=== PATIENT | female | born 1980 | race Caucasian/White ===

== ENCOUNTER 2018-04-25 16:48 | Emergency (ER) | payer MEDICAID ==
[~2018-04-25] VITALS: Ht 157.5 cm; Wt 83.0 kg
[2018-04-25] MEDS ORDERED: ASPI-1159 PO (17:29)
[2018-04-25] MEDS ORDERED: METO-385 PO (17:29)
[2018-04-25] MEDS ORDERED: ACETAMINOPHEN 500MG TABLET PO ONE (23:45)
[2018-04-26 00:47] LABS: CLARITY URINE TURBID (CLEAR); COLOR URINE DARK YELLOW (YELLOW); KETONES URINE 3+ (NEGATIVE); LEUKOCYTE ESTERASE URINE 2+ (NEGATIVE); NITRITE URINE NEGATIVE (NEGATIVE); OCCULT BLOOD URINE 1+ (NEGATIVE); PH URINE 5.5 (4.5-8.0); PROTEIN URINE 1+ (NEGATIVE); SPECIFIC GRAVITY URINE 1.027 (1.005-1.030)
[2018-04-26] MEDS ORDERED: CEPHALEXIN 250MG CAPSULE PO SCH (02:45)
[2018-04-26 03:36] VITALS: BP 118/68
== END 2018-04-26 03:36 | disposition home or self-care (01) ==
LOC: ER 16:48
DX: O23.42 Unspecified infection of urinary tract in pregnancy, second trimester (principal); O16.2 Unspecified maternal hypertension, second trimester; Z3A.15 15 weeks gestation of pregnancy
CPT/HCPCS: 81025; 87077; 87804; 99283

== ENCOUNTER 2018-08-23 19:25 | Observation (INO) | payer MEDICAID ==
[~2018-08-23] VITALS: Ht 154.9 cm; Wt 89.4 kg
[~2018-08-23 19:25] MED LIST: ASPI-1393 PO; METO-385 PO
[2018-08-23 20:20] LABS: CLARITY URINE CLOUDY (CLEAR); COLOR URINE YELLOW (YELLOW); KETONES URINE TRACE (NEGATIVE); LEUKOCYTE ESTERASE URINE 2+ (NEGATIVE); NITRITE URINE NEGATIVE (NEGATIVE); OCCULT BLOOD URINE NEGATIVE (NEGATIVE); PROTEIN URINE NEGATIVE (NEGATIVE); SPECIFIC GRAVITY URINE 1.027 (1.005-1.030)
[2018-08-23 20:22] LABS: BASOPHILS % 0.3 % (0.0-2.0); EOSINOPHILS % 0.8 % (0.0-5.0); HEMATOCRIT. 35.9 % (36.0-48.0); HEMOGLOBIN. 12.2 g/dL (12.0-16.0); LYMPHOCYTES % 19.6 % (20.0-50.0); MEAN CORPUSCULAR HEMOGLOBIN 31.3 pg (28.0-32.0); MEAN CORPUSCULAR VOLUME 92.2 fL (81.0-99.0); MEAN PLATELET VOLUME 9.5 fl (7.4-10.4); MONOCYTES % 6.1 % (2.0-8.0); NEUTROPHILS % 73.2 % (40.0-76.0); PLATELET 194 x1000/uL (130-400); RED CELL DISTRIBUTION WIDTH 13.4 % (11.6-14.6)
[2018-08-23 20:27] LABS: CHLORIDE 110 mEq/L (98-107)
[2018-08-23 20:34] LABS: *AMPHETAMINES SCREEN URINE NEGATIVE (NEGATIVE); *BARBITURATES SCREEN URINE NEGATIVE (NEGATIVE)
[2018-08-23 20:35] LABS: *BENZODIAZEPINES SCREEN URINE NEGATIVE (NEGATIVE); *COCAINE SCREEN URINE NEGATIVE (NEGATIVE); CANNABINOID URINE SCREEN NEGATIVE (NEGATIVE); METHADONE URINE SCREEN NEGATIVE (NEGATIVE); OPIATES URINE SCREEN NEGATIVE (NEGATIVE); PHENCYCLIDINE URINE SCREEN NEGATIVE (NEGATIVE)
[2018-08-23 20:36] LABS: D-DIMER 1.4 mg/L FEU (<0.50); INR 0.9; PARTIAL THROMBOPLASTIN TIME 30.1 sec (23.4-31.0); PROTHROMBIN TIME 9.6 sec (9.6-11.0)
== END 2018-08-23 21:10 | disposition home or self-care (01) ==
LOC: INTOOBSV 19:25 → 8 EST LDRP 19:25
PROVIDERS: ADMIT Obstetrics & Gynecology; ATTEND Obstetrics & Gynecology
DX: O62.9 Abnormality of forces of labor, unspecified (principal); Z3A.36 36 weeks gestation of pregnancy
CPT/HCPCS: 36415; 80053; 80305; 80359; 81003; 84550; 85025; 85379; 85384; 85610; 85730; 99281; G0378

== ENCOUNTER 2018-08-28 00:04 | Inpatient (IN) | payer MEDICAID ==
[~2018-08-28] VITALS: Ht 154.9 cm; Wt 89.4 kg
[2018-08-28] MEDS ORDERED: DEXT 5%/LR + PITOCIN 20UNITS/L 1,000 ML IV SCH ×2 (00:46→18:24)
[2018-08-28] MEDS ORDERED: LACTATED RINGERS 1,000 ML IV SCH (00:46)
[2018-08-28] MEDS ORDERED: LIDOCAINE HCL 1% 20ML VIAL (Pyxis) INJ INFIL SCH (01:00)
[2018-08-28] MEDS ORDERED: AMPICILLIN 2,000 MG in SODIUM CHLORIDE 0.9% 100 ML IV SCH (01:00)
[2018-08-28] MEDS ORDERED: METHYLERGONOVINE MALEATE 0.2 MG/ML IM PRN (01:00)
[2018-08-28] MEDS ORDERED: NALOXONE HCL 0.4 MG/ML 1ML VIAL IM PRN (01:00)
[2018-08-28] MEDS ORDERED: LABE200T28 PO (01:00)
[2018-08-28] MEDS ORDERED: CARBOPROST TROMETHAMINE 250 MCG/ML AMPUL IM PRN (01:00)
[2018-08-28] MEDS ORDERED: PNV1TABL50 MT (01:00)
[2018-08-28] MEDS ORDERED: BUTORPHANOL TARTRATE 2 MG/ML VIAL IV PRN (01:00)
[2018-08-28] MEDS: MISOPROSTOL 100MCG TABLET VG SCH ×4 (01:35→13:51)
[2018-08-28 01:45] LABS: BASOPHILS % 0.5 % (0.0-2.0); EOSINOPHILS % 1.4 % (0.0-5.0); HEMATOCRIT. 34.5 % (36.0-48.0); HEMOGLOBIN. 11.9 g/dL (12.0-16.0); LYMPHOCYTES % 25.5 % (20.0-50.0); MEAN CORPUSCULAR HEMOGLOBIN 31.4 pg (28.0-32.0); MEAN CORPUSCULAR VOLUME 91.3 fL (81.0-99.0); MEAN PLATELET VOLUME 9.6 fl (7.4-10.4); MONOCYTES % 5.5 % (2.0-8.0); NEUTROPHILS % 67.1 % (40.0-76.0); PLATELET 181 x1000/uL (130-400); RED BLOOD CELL COUNT 3.79 mill/uL (4.2-5.4); RED CELL DISTRIBUTION WIDTH 13.2 % (11.6-14.6)
[2018-08-28 01:53] LABS: CHLORIDE 111 mEq/L (98-107)
[2018-08-28 01:54] LABS: INR 0.9; PARTIAL THROMBOPLASTIN TIME 29.6 sec (23.4-31.0); PROTHROMBIN TIME 9.4 sec (9.6-11.0)
[2018-08-28 02:33] LABS: HEPATITIS B SURFACE ANTIGEN NEGATIVE
[2018-08-28 02:34] LABS: CLARITY URINE CLEAR (CLEAR); COLOR URINE YELLOW (YELLOW); KETONES URINE NEGATIVE (NEGATIVE); LEUKOCYTE ESTERASE URINE TRACE (NEGATIVE); NITRITE URINE NEGATIVE (NEGATIVE); OCCULT BLOOD URINE NEGATIVE (NEGATIVE); PROTEIN URINE NEGATIVE (NEGATIVE); SPECIFIC GRAVITY URINE 1.014 (1.005-1.030); UROBILINOGEN URINE 0.2 E.U./dL (0.2-1.0)
[2018-08-28 02:36] LABS: *BENZODIAZEPINES SCREEN URINE NEGATIVE (NEGATIVE); *COCAINE SCREEN URINE NEGATIVE (NEGATIVE)
[2018-08-28 02:37] LABS: *AMPHETAMINES SCREEN URINE NEGATIVE (NEGATIVE); *BARBITURATES SCREEN URINE NEGATIVE (NEGATIVE); CANNABINOID URINE SCREEN NEGATIVE (NEGATIVE); METHADONE URINE SCREEN NEGATIVE (NEGATIVE); OPIATES URINE SCREEN NEGATIVE (NEGATIVE); PHENCYCLIDINE URINE SCREEN NEGATIVE (NEGATIVE)
[2018-08-28] MEDS ORDERED: AMPICILLIN 1,000 MG in SODIUM CHLORIDE 0.9% 50 ML IV SCH (08:00)
[2018-08-28] MEDS: LABETALOL HCL 200MG TABLET PO SCH ×2 (09:25→23:10)
[2018-08-28] MEDS ORDERED: IBUPROFEN 400MG TABLET PO PRN (18:30)
[2018-08-28] MEDS ORDERED: RHO(D) IMMUNE GLOBULIN 300 MCG/SYR IM PRN (18:30)
[2018-08-28] MEDS: IBUPROFEN 800MG TABLET PO PRN (19:30)
[2018-08-28] MEDS ORDERED: LABETALOL HCL 200MG TABLET PO SCH (21:00)
[2018-08-28 21:20] VITALS: BP 118/65
[2018-08-28 21:50] VITALS: BP 121/61
[2018-08-29 05:52] VITALS: BP 119/63
[2018-08-29 07:07] LABS: BASOPHILS % 0.6 % (0.0-2.0); EOSINOPHILS % 0.6 % (0.0-5.0); HEMATOCRIT. 28.9 % (36.0-48.0); LYMPHOCYTES % 16.9 % (20.0-50.0); MEAN CORPUSCULAR VOLUME 92.8 fL (81.0-99.0); MEAN PLATELET VOLUME 9.9 fl (7.4-10.4); MONOCYTES % 4.9 % (2.0-8.0); PLATELET 154 x1000/uL (130-400); RED BLOOD CELL COUNT 3.11 mill/uL (4.2-5.4); RED CELL DISTRIBUTION WIDTH 13.1 % (11.6-14.6)
[2018-08-29] MEDS: IBUPROFEN 800MG TABLET PO PRN (08:50)
[2018-08-29] MEDS: LABETALOL HCL 200MG TABLET PO SCH ×2 (08:51→20:52)
[2018-08-29 09:00] VITALS: BP 123/63
[2018-08-29 16:00] VITALS: BP 130/70
[2018-08-29 19:45] VITALS: BP 128/59
[2018-08-30] MEDS: IBUPROFEN 800MG TABLET PO PRN ×2 (04:39→10:27)
[2018-08-30 04:45] VITALS: BP 149/62
[2018-08-30] MEDS ORDERED: TETANUS, DIPHTHERIA, PERTUSSIS VAC/PF 0.5ML (>7YR OLD) IM ONE (08:00)
[2018-08-30] MEDS: LABETALOL HCL 200MG TABLET PO SCH (09:06)
[2018-08-30 09:23] VITALS: BP 134/71
== END 2018-08-30 14:10 | disposition home or self-care (01) | DRG 560 ==
LOC: 8 EST LDRP 00:04 → OBSVTOIN 00:04 → INTOOBSV 00:04 → 8EST 21:29
PROVIDERS: ADMIT Obstetrics & Gynecology; ATTEND Obstetrics & Gynecology
PROC: 10E0XZZ Delivery of Products of Conception, External Approach (ICD-10-PCS; principal; 2018-08-28)
DX: O13.3 Gestational [pregnancy-induced] hypertension without significant proteinuria, third trimester (principal); O24.419 Gestational diabetes mellitus in pregnancy, unspecified control; O09.523 Supervision of elderly multigravida, third trimester; Z37.0 Single live birth; Z3A.37 37 weeks gestation of pregnancy
CPT/HCPCS: 36415; 80305; 80359; 84550; 85384; 86592; 86703; 86762; 86850; 86900; 87340; 96365; 96366; 96367; 99281; G0378; J0290; J0595; J2590; J7050; J7120